=== PATIENT | male | born 1960 ===

== ENCOUNTER 2019-04-23 11:11 | Outpatient (CLI) | payer OTHER ==
[~2019-04-23 11:11] MED LIST: AMBIEN CR12.5 MG/BL; DALMANE30 MG; INTESTINEX1 CA1 PO; SAPHRIS10 MG; XANAX XR2 MG
== END 2019-04-23 11:14 | disposition home or self-care (01) ==
LOC: SONOGRAMA 11:11
DX: N40.0 Benign prostatic hyperplasia without lower urinary tract symptoms (principal); G47.00 Insomnia, unspecified; R35.0 Frequency of micturition

== ENCOUNTER 2023-09-08 10:48 | Outpatient (CLI) | payer OTHER | END 2023-09-08 10:56 | disposition home or self-care (01) | LOC: RAD 10:48 | PROVIDERS: ATTEND Family Medicine | DX: R10.9 Unspecified abdominal pain (principal); F07.81 Postconcussional syndrome ==

== ENCOUNTER 2023-10-11 10:07 | Outpatient (CLI) | payer OTHER | END 2023-10-11 10:20 | disposition home or self-care (01) | LOC: RAD 10:07 | PROVIDERS: ATTEND Family Medicine | DX: M54.50 Low back pain, unspecified (principal) ==